=== PATIENT | male | born 1950 ===

== ENCOUNTER → 2018-07-10 | Outpatient (CLI) | payer MEDICARE | END | disposition home or self-care (01) | LOC: CVU 12:10 | PROVIDERS: ATTEND Internal Medicine Cardiovascular Disease | DX: I08.1 Rheumatic disorders of both mitral and tricuspid valves (principal) | CPT/HCPCS: 0399T; 93306; 93970 ==

== ENCOUNTER 2018-07-27 10:09 | Day surgery (SDC) | payer MEDICARE ==
[~2018-07-27] VITALS: Ht 180.3 cm; Wt 74.5 kg
[2018-07-27] MEDS ORDERED: No Medications (11:08)
[2018-07-27 11:09] VITALS: BP 154/85
[2018-07-27] MEDS ORDERED: SODIUM CHLORIDE 0.9% 1,000 ML IV SCH (11:30)
[2018-07-27] MEDS ORDERED: PLEASE ENTER HEIGHT AND WEIGHT MC SCH (11:30)
[2018-07-27] MEDS ORDERED: PROPOFOL 10 MG/ML, 20ML ONE (11:37)
== END 2018-07-27 13:04 | disposition home or self-care (01) ==
LOC: CACL 10:09
PROVIDERS: ATTEND Internal Medicine Cardiovascular Disease
DX: I34.0 Nonrheumatic mitral (valve) insufficiency (principal); E78.5 Hyperlipidemia, unspecified; Z98.890 Other specified postprocedural states
CPT/HCPCS: 93312; 93321; 93325; J2704

== ENCOUNTER → 2018-10-23 | Outpatient (CLI) | payer MEDICARE ==
[~2018-10-23] MED LIST: CLARITIN PO; MAGNESIUM PO; MULT-6 PO; No Medications; POTASSIUM PO
[2018-10-23 15:48] LABS: BASOPHILS # (AUTO) 0.03 x10^3/uL (0-0.1); BASOPHILS % (AUTO) 0 % (0-1); EOSINOPHILS # (AUTO) 0.19 x10^3/uL (0-0.4); EOSINOPHILS % (AUTO) 3 % (1-7); LYMPHOCYTES # (AUTO) 1.65 x10^3/uL (1-3.4); LYMPHOCYTES % (AUTO) 22 % (22-44); MD NO; MEAN CORPUSCULAR HEMOGLOBIN 31.4 pg (27.5-34.5); MEAN CORPUSCULAR HGB CONC 33.4 g/dL (33.2-36.2); MEAN CORPUSCULAR VOLUME 94.1 fL (81-97); MEAN PLATELET VOLUME 9.1 fL (7.4-10.4); MONOCYTES # (AUTO) 0.61 x10^3/uL (0.2-0.8); MONOCYTES % (AUTO) 8 % (2-9); NEUTROPHILS # (AUTO) 5.08 x10^3/uL (1.8-6.8); NEUTROPHILS % (AUTO) 67 % (42-75); PLATELET COUNT 210 x10^3/uL (130-400); RED BLOOD COUNT 4.85 x10^6/uL (4.38-5.82); RED CELL DISTRIBUTION WIDTH 14.1 % (9.4-14.8)
[2018-10-23 17:57] LABS: ANION GAP 6 mmol/L (5-15); CHLORIDE 105 mmol/L (98-107); CREATININE 1.03 mg/dL (0.7-1.3)
== END | disposition home or self-care (01) ==
LOC: CFH 14:01
PROVIDERS: ATTEND Internal Medicine Cardiovascular Disease
DX: Z12.11 Encounter for screening for malignant neoplasm of colon (principal); I34.0 Nonrheumatic mitral (valve) insufficiency; E78.5 Hyperlipidemia, unspecified; I83.023 Varicose veins of left lower extremity with ulcer of ankle; R01.1 Cardiac murmur, unspecified; R03.0 Elevated blood-pressure reading, without diagnosis of hypertension
CPT/HCPCS: 36415; 80048; 85025

== ENCOUNTER 2018-10-25 06:55 | Day surgery (SDC) | payer MEDICARE ==
[~2018-10-25] VITALS: Ht 177.8 cm; Wt 75.5 kg
[~2018-10-25 06:55] MED LIST changes: -CLARITIN PO; -MAGNESIUM PO; -MULT-6 PO; -POTASSIUM PO
[2018-10-25] MEDS ORDERED: POTASSIUM PO (07:16)
[2018-10-25] MEDS ORDERED: MAGNESIUM PO (07:16)
[2018-10-25] MEDS ORDERED: MULT-6 PO (07:16)
[2018-10-25] MEDS ORDERED: CLARITIN PO (07:16)
[2018-10-25 07:24] VITALS: BP 145/84
[2018-10-25] MEDS ORDERED: FENTANYL PF 100 MCG/2ML ONE (08:11)
[2018-10-25] MEDS ORDERED: MIDAZOLAM 1 MG/ML, 2ML ONE (08:11)
[2018-10-25] MEDS ORDERED: LIDOCAINE 1%, 20ML ONE (08:11)
== END 2018-10-25 11:34 | disposition home or self-care (01) ==
LOC: CACL 06:55
PROVIDERS: ATTEND Internal Medicine Cardiovascular Disease
DX: I25.10 Atherosclerotic heart disease of native coronary artery without angina pectoris (principal); I34.0 Nonrheumatic mitral (valve) insufficiency; E78.2 Mixed hyperlipidemia; G43.909 Migraine, unspecified, not intractable, without status migrainosus
CPT/HCPCS: 93458; 99156; C1760; C1769; C1894; J2250; J3010; J3490; Q9967

== ENCOUNTER 2018-11-07 04:17 | Inpatient (IN) | payer MEDICARE ==
[2018-11-06 14:22] LABS: MICROSCOPIC NOT IND
[2018-11-06 14:25] LABS: CULTURE INDICATED? NO
[2018-11-06 14:33] LABS: BASOPHILS # (AUTO) 0.03 x10^3/uL (0-0.1); BASOPHILS % (AUTO) 1 % (0-1); EOSINOPHILS # (AUTO) 0.14 x10^3/uL (0-0.4); EOSINOPHILS % (AUTO) 2 % (1-7); LYMPHOCYTES # (AUTO) 1.53 x10^3/uL (1-3.4); LYMPHOCYTES % (AUTO) 22 % (22-44); MD NO; MEAN CORPUSCULAR HEMOGLOBIN 32.1 pg (27.5-34.5); MEAN CORPUSCULAR HGB CONC 34.4 g/dL (33.2-36.2); MEAN CORPUSCULAR VOLUME 93.3 fL (81-97); MEAN PLATELET VOLUME 8.2 fL (7.4-10.4); MONOCYTES # (AUTO) 0.57 x10^3/uL (0.2-0.8); MONOCYTES % (AUTO) 8 % (2-9); NEUTROPHILS # (AUTO) 4.78 x10^3/uL (1.8-6.8); NEUTROPHILS % (AUTO) 68 % (42-75); PLATELET COUNT 224 x10^3/uL (130-400); RED BLOOD COUNT 4.85 x10^6/uL (4.38-5.82); RED CELL DISTRIBUTION WIDTH 14.1 % (9.4-14.8)
[2018-11-06 14:42] LABS: ALANINE AMINOTRANSFERASE 24 U/L (12-78); ANION GAP 7 mmol/L (5-15); CALCIUM 8.9 mg/dL (8.5-10.1); CHLORIDE 105 mmol/L (98-107); CREATININE 0.94 mg/dL (0.7-1.3)
[2018-11-06 14:44] LABS: INTERNATIONAL NORMALIZED RATIO 0.98 (0.93-1.1); PROTHROMBIN TIME 10.4 Seconds (9.6-11.5)
[2018-11-06 14:45] LABS: ALKALINE PHOSPHATASE 78 U/L (45-117); BILIRUBIN,TOTAL 0.6 mg/dL (0.2-1.0); TOTAL PROTEIN 7.4 g/dL (6.4-8.2)
[2018-11-06 15:45] LABS: HEMOGLOBIN A1C 5.2 % (4.2-6.3)
[~2018-11-07] VITALS: Ht 177.8 cm; Wt 79.9 kg
[~2018-11-07 04:17] MED LIST changes: +CLARITIN PO; +MAGN100T3 PO; +MAGNESIUM PO; +MULT-6 PO; +POTASSIUM PO
[2018-11-07 04:30] VITALS: BP_SYST 145; BP_DIAS 74; BP_DIAS 86
[2018-11-07] MEDS ORDERED: CHLORHEXIDINE 15 ML UDC MM SCH (05:00)
[2018-11-07] MEDS ORDERED: DO NOT GIVE MC SCH (05:00)
[2018-11-07] MEDS ORDERED: INSULIN LISPRO 100 UNITS/ML, PEN SQ-INSULIN SCH (05:00)
[2018-11-07] MEDS: MUPIROCIN OINT 2%, 22GM TP SCH ×2 (05:38→19:29)
[2018-11-07] MEDS: SODIUM CHLORIDE FLUSH 10ML SYR IVF SCH ×3 (05:38→19:58)
[2018-11-07 06:51] VITALS: BP 124/77
[2018-11-07] MEDS ORDERED: VANCOMYCIN 1,100 MG in SODIUM CHLORIDE 0.9% 250 ML IV PRN (07:30)
[2018-11-07] MEDS ORDERED: PHENYLEPHRINE 10 MG in SODIUM CHLORIDE 0.9% 249 ML IV PRN ×2 (07:30→11:46)
[2018-11-07] MEDS ORDERED: REGULAR INSULIN 62.5 UNITS in SODIUM CHLORIDE 0.9% 249.375 ML IV PRN ×2 (07:30→11:46)
[2018-11-07] MEDS ORDERED: POTASSIUM CHLORIDE 80 MEQ, SODIUM BICARBONATE 8.4% 10 MEQ, MAGNESIUM SULFATE 0.5 GM, LI... IV PRN (07:30)
[2018-11-07] MEDS ORDERED: EPINEPHRINE 2 MG in SODIUM CHLORIDE 0.9% 248 ML IV SCH (07:30)
[2018-11-07] MEDS ORDERED: MANNITOL PMX 20% 500 ML IVPB PRN (07:30)
[2018-11-07] MEDS ORDERED: DEXMEDETOMIDINE 200 MCG in SODIUM CHLORIDE 0.9% 48 ML IV SCH (07:30)
[2018-11-07] MEDS ORDERED: CEFUROXIME 1.5 GM in SODIUM CHLORIDE 0.9% 50 ML IVPB PRN (07:30)
[2018-11-07] MEDS ORDERED: ALBUMIN HUMAN 5% 500 ML IV PRN (07:30)
[2018-11-07] MEDS ORDERED: FENTANYL PF 250 MCG/5ML ONE ×4 (07:48)
[2018-11-07] MEDS ORDERED: MIDAZOLAM 10MG/2 ML ONE (07:48)
[2018-11-07] MEDS: DOCUSATE 100 MG CAPSULE PO SCH ×2 (09:00→19:58)
[2018-11-07] MEDS ORDERED: ROCURONIUM 10MG/ML,5ML ONE ×2 (10:00)
[2018-11-07] MEDS ORDERED: PROTAMINE SULFATE 10 MG/ML, 25ML ONE (10:00)
[2018-11-07] MEDS ORDERED: PROPOFOL 10 MG/ML, 20ML ONE (10:00)
[2018-11-07] MEDS ORDERED: AMINOCAPROIC ACID 250 MG/ML, 20ML ONE ×2 (10:00)
[2018-11-07] MEDS ORDERED: SODIUM CHLORIDE 0.9% 1,000 ML IV PRN (11:46)
[2018-11-07] MEDS ORDERED: VASOPRESSIN 50 UNIT in SODIUM CHLORIDE 0.9% 247.5 ML IV PRN (11:46)
[2018-11-07] MEDS ORDERED: NITROGLYCERIN/D5W PMX 250 ML IV PRN (11:46)
[2018-11-07] MEDS ORDERED: DEXMEDETOMIDINE 200 MCG in SODIUM CHLORIDE 0.9% 48 ML IV PRN (11:46)
[2018-11-07] MEDS ORDERED: DOBUTAMINE 250 MG in SODIUM CHLORIDE 0.9% 230 ML IV PRN (11:46)
[2018-11-07] MEDS ORDERED: LIDOCAINE 2% 100MG/5ML SYRINGE ONE (11:52)
[2018-11-07] MEDS ORDERED: SODIUM BICARB 8.4%, 50ML SYRINGE ONE (11:52)
[2018-11-07] MEDS ORDERED: methylPREDNISolone SOD SUCC 125 MG/2 ML ONE (11:52)
[2018-11-07] MEDS ORDERED: MANNITOL 0.25 GM/ML, 50ML ONE (11:53)
[2018-11-07] MEDS ORDERED: ALBUMIN HUMAN 25% 50 ML ONE (11:53)
[2018-11-07] MEDS ORDERED: HEPARIN 1,000 UNITS/ML, 30ML ONE (11:53)
[2018-11-07] MEDS: KSCALE TO 4.5 IV SCH ×3 (12:00→23:53)
[2018-11-07] MEDS ORDERED: PROCHLORPERAZINE 5 MG/ML, 2ML IVPush PRN (12:00)
[2018-11-07] MEDS ORDERED: SODIUM BICARB 8.4%, 50ML SYRINGE IV PRN (12:00)
[2018-11-07] MEDS ORDERED: BISACODYL 5 MG EC TABLET PO PRN (12:00)
[2018-11-07] MEDS ORDERED: FENTANYL PF 100 MCG/2ML IVPush PRN (12:00)
[2018-11-07] MEDS ORDERED: GLUCAGON 1 MG IM PRN (12:00)
[2018-11-07] MEDS ORDERED: morphine SULFATE 10 MG/ML, 1ML IVPush PRN (12:00)
[2018-11-07] MEDS ORDERED: DEXTROSE 4 GM TAB.CHEW PO PRN (12:00)
[2018-11-07] MEDS ORDERED: ACETAMINOPHEN 325 MG TABLET PO PRN (12:00)
[2018-11-07] MEDS ORDERED: INSULIN REGULAR 100 UNITS/ML, 3ML VIAL IVPush PRN (12:00)
[2018-11-07] MEDS ORDERED: EPINEPHRINE 2 MG in SODIUM CHLORIDE 0.9% 248 ML IV PRN (12:00)
[2018-11-07] MEDS ORDERED: BISACODYL 10 MG SUPP PR PRN (12:00)
[2018-11-07] MEDS ORDERED: ONDANSETRON 2MG/ML, 2ML IVPush PRN (12:00)
[2018-11-07] MEDS ORDERED: DEXTROSE 50%, 50ML SYRINGE IVPush PRN (12:00)
[2018-11-07] MEDS ORDERED: MIDAZOLAM 1 MG/ML, 5ML IVPush PRN (12:00)
[2018-11-07] MEDS ORDERED: CEFUROXIME 1.5 GM in SODIUM CHLORIDE 0.9% 50 ML IVPB SCH (12:00)
[2018-11-07] MEDS ORDERED: HYDROcodone/APAP 10/325 MG TABLET PO PRN (12:00)
[2018-11-07] MEDS ORDERED: ACETAMINOPHEN 650 MG SUPP PR PRN (12:00)
[2018-11-07 12:28] LABS: GLUCOSE BY BLOOD GAS ANALYZER 129 mg/dL (70-110); HEMOGLOBIN BY BLOOD GAS ANALYZ 12.6 g/dL (14.0-18.0)
[2018-11-07] MEDS ORDERED: MAGNESIUM SULFATE 1 GM in SODIUM CHLORIDE 0.9% 50 ML IVPB SCH (12:30)
[2018-11-07 12:40] LABS: INTERNATIONAL NORMALIZED RATIO 1.17 (0.93-1.1); PROTHROMBIN TIME 12.3 Seconds (9.6-11.5)
[2018-11-07] MEDS: LACTATED RINGERS 1,000 ML IV PRN ×4 (14:24→16:16)
[2018-11-07] MEDS: INSULIN LISPRO 100 UNITS/ML, PEN SQ-INSULIN SCH ×2 (16:00→19:58)
[2018-11-07] MEDS: OXYcodone IR 5MG TABLET PO PRN ×2 (16:24→19:58)
[2018-11-07] MEDS ORDERED: ALBUMIN HUMAN 25% 100 ML IV ONE (16:30)
[2018-11-07] MEDS ORDERED: ALBUMIN HUMAN 5% 500 ML IV ONE ×3 (16:30→17:00)
[2018-11-07] MEDS: MUPIROCIN OINT 2%, 22GM NAS SCH (19:58)
[2018-11-07] MEDS: HYDROcodone/APAP 5/325 TABLET PO PRN (22:26)
[2018-11-07] MEDS: VANCOMYCIN 1,100 MG in SODIUM CHLORIDE 0.9% 250 ML IVPB SCH (22:26)
[2018-11-07] MEDS: CEFUROXIME 1.5 GM in SODIUM CHLORIDE 0.9% 50 ML IVPB SCH (23:48)
[2018-11-08] MEDS ORDERED: FUROSEMIDE 20 MG/2 ML IV ONE (02:00)
[2018-11-08] MEDS: HYDROcodone/APAP 5/325 TABLET PO PRN ×2 (05:06→11:37)
[2018-11-08 06:05] LABS: INTERNATIONAL NORMALIZED RATIO 1.08 (0.93-1.1); PROTHROMBIN TIME 11.4 Seconds (9.6-11.5)
[2018-11-08 06:07] LABS: MEAN CORPUSCULAR HEMOGLOBIN 32.3 pg (27.5-34.5); MEAN CORPUSCULAR HGB CONC 34.7 g/dL (33.2-36.2); MEAN CORPUSCULAR VOLUME 93.2 fL (81-97); MEAN PLATELET VOLUME 8.8 fL (7.4-10.4); PLATELET COUNT 135 x10^3/uL (130-400); RED BLOOD COUNT 3.98 x10^6/uL (4.38-5.82); RED CELL DISTRIBUTION WIDTH 13.4 % (9.4-14.8)
[2018-11-08 06:09] LABS: CALCIUM 8.3 mg/dL (8.5-10.1); CHLORIDE 109 mmol/L (98-107)
[2018-11-08 06:13] LABS: ALBUMIN 3.1 g/dL (3.4-5.0); ANION GAP 6 mmol/L (5-15); CREATININE 0.83 mg/dL (0.7-1.3)
[2018-11-08 06:30] LABS: BASOPHILS # (AUTO) 0.04 x10^3/uL (0-0.1); BASOPHILS % (AUTO) 0 % (0-1); EOSINOPHILS % (AUTO) 0 % (1-7); LYMPHOCYTES % (AUTO) 6 % (22-44); MD SCAN; MONOCYTES # (AUTO) 1.19 x10^3/uL (0.2-0.8); MONOCYTES % (AUTO) 7 % (2-9); NEUTROPHILS # (AUTO) 14.71 x10^3/uL (1.8-6.8); NEUTROPHILS % (AUTO) 87 % (42-75)
[2018-11-08] MEDS: KSCALE TO 4.5 IV SCH (06:42)
[2018-11-08] MEDS: INSULIN LISPRO 100 UNITS/ML, PEN SQ-INSULIN SCH ×4 (07:00→20:56)
[2018-11-08] MEDS: DOCUSATE 100 MG CAPSULE PO SCH ×2 (08:21→20:57)
[2018-11-08] MEDS: ASPIRIN 81 MG TABLET EC PO SCH (08:21)
[2018-11-08] MEDS: SODIUM CHLORIDE FLUSH 10ML SYR IVF SCH ×4 (08:22→20:57)
[2018-11-08] MEDS: WARFARIN BIOPROSTHETIC VALVE PROTOCOL 2-3 XX SCH (09:00)
[2018-11-08] MEDS: VANCOMYCIN 1,100 MG in SODIUM CHLORIDE 0.9% 250 ML IVPB SCH (10:00)
[2018-11-08] MEDS: KETOROLAC 30 MG/1 ML IM SCH ×3 (10:00→21:10)
[2018-11-08] MEDS: CEFUROXIME 1.5 GM in SODIUM CHLORIDE 0.9% 50 ML IVPB SCH (11:39)
[2018-11-08] MEDS: MUPIROCIN OINT 2%, 22GM NAS SCH ×2 (11:40→20:57)
[2018-11-08] MEDS ORDERED: VANCOMYCIN 1,100 MG in SODIUM CHLORIDE 0.9% 250 ML IVPB ONE (12:00)
[2018-11-08] MEDS: POTASSIUM CHLORIDE 10 MEQ TABLET.ER PO SCH (17:00)
[2018-11-08] MEDS: FUROSEMIDE 20 MG/2 ML IV SCH (17:34)
[2018-11-08] MEDS ORDERED: WARFARIN 5 MG TABLET PO-COUM ONE (18:00)
[2018-11-08] MEDS: CHLORHEXIDINE 15 ML UDC MM SCH (20:56)
[2018-11-09] MEDS: KETOROLAC 30 MG/1 ML IM SCH ×4 (04:44→21:28)
[2018-11-09 05:41] LABS: ANION GAP 5 mmol/L (5-15); CALCIUM 7.8 mg/dL (8.5-10.1); CHLORIDE 106 mmol/L (98-107); INTERNATIONAL NORMALIZED RATIO 1.03 (0.93-1.1); PROTHROMBIN TIME 10.9 Seconds (9.6-11.5)
[2018-11-09 05:42] LABS: CREATININE 0.84 mg/dL (0.7-1.3)
[2018-11-09 05:49] LABS: BASOPHILS # (AUTO) 0.04 x10^3/uL (0-0.1); BASOPHILS % (AUTO) 0 % (0-1); EOSINOPHILS # (AUTO) 0.04 x10^3/uL (0-0.4); EOSINOPHILS % (AUTO) 0 % (1-7); LYMPHOCYTES # (AUTO) 1.36 x10^3/uL (1-3.4); LYMPHOCYTES % (AUTO) 10 % (22-44); MD NO; MEAN CORPUSCULAR HEMOGLOBIN 32.4 pg (27.5-34.5); MEAN CORPUSCULAR HGB CONC 34.1 g/dL (33.2-36.2); MEAN CORPUSCULAR VOLUME 94.9 fL (81-97); MEAN PLATELET VOLUME 9.4 fL (7.4-10.4); MONOCYTES # (AUTO) 1.16 x10^3/uL (0.2-0.8); MONOCYTES % (AUTO) 9 % (2-9); NEUTROPHILS # (AUTO) 10.73 x10^3/uL (1.8-6.8); NEUTROPHILS % (AUTO) 81 % (42-75); PLATELET COUNT 106 x10^3/uL (130-400); RED CELL DISTRIBUTION WIDTH 13.8 % (9.4-14.8)
[2018-11-09] MEDS: INSULIN LISPRO 100 UNITS/ML, PEN SQ-INSULIN SCH ×4 (07:00→20:31)
[2018-11-09] MEDS: POTASSIUM CHLORIDE 10 MEQ TABLET.ER PO SCH ×2 (08:00→17:00)
[2018-11-09] MEDS: SODIUM CHLORIDE FLUSH 10ML SYR IVF SCH ×4 (09:00→20:24)
[2018-11-09] MEDS: WARFARIN BIOPROSTHETIC VALVE PROTOCOL 2-3 XX SCH (09:00)
[2018-11-09] MEDS: FUROSEMIDE 20 MG/2 ML IV SCH ×2 (09:49→18:43)
[2018-11-09] MEDS: ASPIRIN 81 MG TABLET EC PO SCH (09:49)
[2018-11-09] MEDS: DOCUSATE 100 MG CAPSULE PO SCH ×2 (09:49→21:27)
[2018-11-09] MEDS: CHLORHEXIDINE 15 ML UDC MM SCH ×2 (09:50→21:27)
[2018-11-09] MEDS: MUPIROCIN OINT 2%, 22GM NAS SCH ×2 (11:36→21:28)
[2018-11-09] MEDS ORDERED: WARFARIN 5 MG TABLET PO-COUM ONE (18:00)
[2018-11-10] MEDS: KETOROLAC 30 MG/1 ML IM SCH ×4 (04:20→22:05)
[2018-11-10 06:21] LABS: ANION GAP 6 mmol/L (5-15); CALCIUM 7.8 mg/dL (8.5-10.1); CHLORIDE 104 mmol/L (98-107); CREATININE 0.76 mg/dL (0.7-1.3)
[2018-11-10 06:31] LABS: BASOPHILS # (AUTO) 0.11 x10^3/uL (0-0.1); BASOPHILS % (AUTO) 1 % (0-1); EOSINOPHILS # (AUTO) 0.17 x10^3/uL (0-0.4); EOSINOPHILS % (AUTO) 2 % (1-7); LYMPHOCYTES # (AUTO) 1.31 x10^3/uL (1-3.4); LYMPHOCYTES % (AUTO) 15 % (22-44); MD NO; MEAN CORPUSCULAR HEMOGLOBIN 33.1 pg (27.5-34.5); MEAN CORPUSCULAR HGB CONC 35.3 g/dL (33.2-36.2); MEAN CORPUSCULAR VOLUME 93.6 fL (81-97); MEAN PLATELET VOLUME 9.9 fL (7.4-10.4); MONOCYTES # (AUTO) 0.89 x10^3/uL (0.2-0.8); MONOCYTES % (AUTO) 10 % (2-9); NEUTROPHILS # (AUTO) 6.42 x10^3/uL (1.8-6.8); NEUTROPHILS % (AUTO) 72 % (42-75); PLATELET COUNT 100 x10^3/uL (130-400); RED BLOOD COUNT 3.59 x10^6/uL (4.38-5.82); RED CELL DISTRIBUTION WIDTH 13.5 % (9.4-14.8)
[2018-11-10 06:32] LABS: INTERNATIONAL NORMALIZED RATIO 1.03 (0.93-1.1); PROTHROMBIN TIME 10.9 Seconds (9.6-11.5)
[2018-11-10] MEDS: INSULIN LISPRO 100 UNITS/ML, PEN SQ-INSULIN SCH ×2 (07:00→11:00)
[2018-11-10] MEDS: WARFARIN BIOPROSTHETIC VALVE PROTOCOL 2-3 XX SCH (07:37)
[2018-11-10] MEDS: DOCUSATE 100 MG CAPSULE PO SCH ×2 (07:56→21:54)
[2018-11-10] MEDS: SODIUM CHLORIDE FLUSH 10ML SYR IVF SCH ×4 (07:56→21:54)
[2018-11-10] MEDS: MUPIROCIN OINT 2%, 22GM NAS SCH ×2 (07:56→21:54)
[2018-11-10] MEDS: FUROSEMIDE 20 MG/2 ML IV SCH ×2 (07:56→17:24)
[2018-11-10] MEDS: CHLORHEXIDINE 15 ML UDC MM SCH (07:56)
[2018-11-10] MEDS: ASPIRIN 81 MG TABLET EC PO SCH (07:56)
[2018-11-10] MEDS: POTASSIUM CHLORIDE 10 MEQ TABLET.ER PO SCH ×2 (07:56→17:24)
[2018-11-10 15:04] VITALS: BP 105/64
[2018-11-10] MEDS ORDERED: WARFARIN 5 MG TABLET PO-COUM ONE (18:00)
[2018-11-10 20:36] VITALS: BP 95/68
[2018-11-11 02:47] VITALS: BP 112/64
[2018-11-11] MEDS: KETOROLAC 30 MG/1 ML IM SCH ×3 (04:30→16:09)
[2018-11-11 05:00] LABS: BASOPHILS # (AUTO) 0.03 x10^3/uL (0-0.1); BASOPHILS % (AUTO) 0 % (0-1); EOSINOPHILS # (AUTO) 0.15 x10^3/uL (0-0.4); EOSINOPHILS % (AUTO) 2 % (1-7); LYMPHOCYTES # (AUTO) 0.97 x10^3/uL (1-3.4); LYMPHOCYTES % (AUTO) 12 % (22-44); MD NO; MEAN CORPUSCULAR HEMOGLOBIN 31.5 pg (27.5-34.5); MEAN CORPUSCULAR VOLUME 92.5 fL (81-97); MEAN PLATELET VOLUME 9.5 fL (7.4-10.4); MONOCYTES # (AUTO) 0.75 x10^3/uL (0.2-0.8); MONOCYTES % (AUTO) 9 % (2-9); NEUTROPHILS # (AUTO) 6.11 x10^3/uL (1.8-6.8); NEUTROPHILS % (AUTO) 76 % (42-75); PLATELET COUNT 117 x10^3/uL (130-400); RED BLOOD COUNT 3.59 x10^6/uL (4.38-5.82); RED CELL DISTRIBUTION WIDTH 13.2 % (9.4-14.8)
[2018-11-11 05:08] LABS: INTERNATIONAL NORMALIZED RATIO 1.05 (0.93-1.1); PROTHROMBIN TIME 11.1 Seconds (9.6-11.5)
[2018-11-11 05:09] LABS: ANION GAP 7 mmol/L (5-15); CALCIUM 7.9 mg/dL (8.5-10.1); CHLORIDE 103 mmol/L (98-107); CREATININE 0.85 mg/dL (0.7-1.3)
[2018-11-11] MEDS: FUROSEMIDE 20 MG/2 ML IV SCH ×2 (07:30→16:09)
[2018-11-11 08:04] VITALS: BP 109/67
[2018-11-11] MEDS: WARFARIN BIOPROSTHETIC VALVE PROTOCOL 2-3 XX SCH (09:00)
[2018-11-11] MEDS: SODIUM CHLORIDE FLUSH 10ML SYR IVF SCH ×4 (09:00→22:05)
[2018-11-11] MEDS: POTASSIUM CHLORIDE 10 MEQ TABLET.ER PO SCH ×2 (09:21→16:09)
[2018-11-11] MEDS: DOCUSATE 100 MG CAPSULE PO SCH ×2 (09:22→22:05)
[2018-11-11] MEDS: MUPIROCIN OINT 2%, 22GM NAS SCH ×2 (09:22→22:05)
[2018-11-11] MEDS: ASPIRIN 81 MG TABLET EC PO SCH (09:22)
[2018-11-11 15:35] VITALS: BP 110/64
[2018-11-11] MEDS ORDERED: WARFARIN 10 MG TABLET PO-COUM ONE (18:00)
[2018-11-11 19:49] VITALS: BP 119/77
[2018-11-11] MEDS: KETOROLAC 30 MG/1 ML IV SCH (22:05)
[2018-11-12 01:37] VITALS: BP 122/71
[2018-11-12] MEDS: KETOROLAC 30 MG/1 ML IV SCH ×4 (03:54→22:24)
[2018-11-12 05:32] LABS: BASOPHILS # (AUTO) 0.03 x10^3/uL (0-0.1); BASOPHILS % (AUTO) 0 % (0-1); EOSINOPHILS # (AUTO) 0.29 x10^3/uL (0-0.4); EOSINOPHILS % (AUTO) 4 % (1-7); LYMPHOCYTES # (AUTO) 1.13 x10^3/uL (1-3.4); LYMPHOCYTES % (AUTO) 17 % (22-44); MD NO; MEAN CORPUSCULAR HGB CONC 35.2 g/dL (33.2-36.2); MEAN CORPUSCULAR VOLUME 93.6 fL (81-97); MEAN PLATELET VOLUME 9.3 fL (7.4-10.4); MONOCYTES # (AUTO) 0.89 x10^3/uL (0.2-0.8); MONOCYTES % (AUTO) 14 % (2-9); NEUTROPHILS # (AUTO) 4.21 x10^3/uL (1.8-6.8); NEUTROPHILS % (AUTO) 64 % (42-75); PLATELET COUNT 137 x10^3/uL (130-400); RED CELL DISTRIBUTION WIDTH 13.2 % (9.4-14.8)
[2018-11-12 05:34] LABS: INTERNATIONAL NORMALIZED RATIO 1.04 (0.93-1.1)
[2018-11-12 05:39] LABS: ANION GAP 8 mmol/L (5-15); CALCIUM 7.9 mg/dL (8.5-10.1); CHLORIDE 107 mmol/L (98-107); CREATININE 0.83 mg/dL (0.7-1.3)
[2018-11-12] MEDS: WARFARIN BIOPROSTHETIC VALVE PROTOCOL 2-3 XX SCH (08:26)
[2018-11-12] MEDS: DOCUSATE 100 MG CAPSULE PO SCH ×2 (09:00→22:24)
[2018-11-12] MEDS: FUROSEMIDE 20 MG/2 ML IV SCH ×2 (09:39→17:43)
[2018-11-12] MEDS: POTASSIUM CHLORIDE 10 MEQ TABLET.ER PO SCH ×2 (09:39→17:43)
[2018-11-12] MEDS: ASPIRIN 81 MG TABLET EC PO SCH (09:40)
[2018-11-12] MEDS: SODIUM CHLORIDE FLUSH 10ML SYR IVF SCH ×4 (09:40→22:24)
[2018-11-12] MEDS: MUPIROCIN OINT 2%, 22GM NAS SCH (09:40)
[2018-11-12] MEDS ORDERED: ASPI81TA45 PO (09:57)
[2018-11-12] MEDS ORDERED: POTA10TA5 PO (09:57)
[2018-11-12] MEDS ORDERED: FURO-93 PO (09:57)
[2018-11-12] MEDS ORDERED: TRAM-47 PO (09:57)
[2018-11-12] MEDS ORDERED: WARF5TAB PO (09:57)
[2018-11-12 14:36] VITALS: BP 112/70
[2018-11-12] MEDS ORDERED: WARFARIN 10 MG TABLET PO-COUM ONE (18:00)
[2018-11-12 20:36] VITALS: BP 119/74
[2018-11-13 02:35] VITALS: BP 109/71
[2018-11-13 05:40] LABS: INTERNATIONAL NORMALIZED RATIO 1.1 (0.93-1.1); PROTHROMBIN TIME 11.6 Seconds (9.6-11.5)
[2018-11-13 05:44] LABS: ANION GAP 5 mmol/L (5-15); CALCIUM 8.1 mg/dL (8.5-10.1); CHLORIDE 108 mmol/L (98-107); CREATININE 0.87 mg/dL (0.7-1.3)
[2018-11-13 07:14] VITALS: BP 121/80
[2018-11-13] MEDS: FUROSEMIDE 20 MG/2 ML IV SCH (07:30)
[2018-11-13] MEDS: DOCUSATE 100 MG CAPSULE PO SCH (07:58)
[2018-11-13] MEDS: KETOROLAC 30 MG/1 ML IV SCH (07:58)
[2018-11-13] MEDS: WARFARIN BIOPROSTHETIC VALVE PROTOCOL 2-3 XX SCH (07:58)
[2018-11-13] MEDS: POTASSIUM CHLORIDE 10 MEQ TABLET.ER PO SCH (08:00)
[2018-11-13] MEDS: SODIUM CHLORIDE FLUSH 10ML SYR IVF SCH ×2 (08:45)
[2018-11-13] MEDS: ASPIRIN 81 MG TABLET EC PO SCH (10:04)
[2018-11-13] MEDS ORDERED: WARFARIN 5 MG TABLET PO-COUM ONE (18:00)
== END 2018-11-13 11:44 | disposition home health service (06) | DRG 219 ==
LOC: 5SO 04:17 → CCU 08:28 → 5SO 11-10 14:17 → DCLOUNGE 11-13 10:54
PROVIDERS: ADMIT Thoracic Surgery (Cardiothoracic Vascular Surgery); ATTEND Thoracic Surgery (Cardiothoracic Vascular Surgery)
PROC: B246ZZ4 Ultrasonography of Right and Left Heart, Transesophageal (ICD-10-PCS; 2018-11-07)
PROC: 02BG0ZZ Excision of Mitral Valve, Open Approach (ICD-10-PCS; 2018-11-07)
PROC: 03HY32Z Insertion of Monitoring Device into Upper Artery, Percutaneous Approach (ICD-10-PCS; 2018-11-07)
PROC: 02HV33Z Insertion of Infusion Device into Superior Vena Cava, Percutaneous Approach (ICD-10-PCS; 2018-11-07)
PROC: 5A1221Z Performance of Cardiac Output, Continuous (ICD-10-PCS; 2018-11-07)
PROC: 02UG0JZ Supplement Mitral Valve with Synthetic Substitute, Open Approach (ICD-10-PCS; principal; 2018-11-07 08:30)
DX: I34.1 Nonrheumatic mitral (valve) prolapse (principal); R65.11 Systemic inflammatory response syndrome (SIRS) of non-infectious origin with acute organ dysfunction; I49.8 Other specified cardiac arrhythmias; I34.0 Nonrheumatic mitral (valve) insufficiency; R25.1 Tremor, unspecified; E78.5 Hyperlipidemia, unspecified; I25.10 Atherosclerotic heart disease of native coronary artery without angina pectoris; I83.90 Asymptomatic varicose veins of unspecified lower extremity; K40.90 Unilateral inguinal hernia, without obstruction or gangrene, not specified as recurrent; Z82.49 Family history of ischemic heart disease and other diseases of the circulatory system; Z87.891 Personal history of nicotine dependence
CPT/HCPCS: 36415; 36600; 71045; 71046; 80048; 80053; 81003; 82040; 82330; 82800; 82803; 82810; 82947; 82962; 83036; 83735; 84132; 84295; 85014; 85018; 85025; 85049; 85347; 85610; 85730; 86850; 86900; 86923; 87081; 88305; 93005; 93312; 93321; 93325; 93880; 94002; G0378; J0697; J1644; J1815; J1885; J2250; J2405; J2704; J2720; J3010; J3370; J3475; J3480; J3490; P9045; P9047; C1751; C1760; J0171; J1940; J2150; J2370; J2930; J7050; J7120

== ENCOUNTER → 2019-01-31 | Outpatient (CLI) | payer MEDICARE ==
[~2019-01-31] MED LIST changes: +ASPI81TA45 PO; +FURO-93 PO; +POTA10TA5 PO; +TRAM-47 PO; +WARF5TAB PO
== END | disposition home or self-care (01) ==
LOC: CFH 12:25
PROVIDERS: ATTEND Internal Medicine Cardiovascular Disease
DX: I08.8 Other rheumatic multiple valve diseases (principal)
CPT/HCPCS: 93306

== ENCOUNTER → 2021-05-24 | Outpatient (CLI) | payer MEDICARE ==
[~2021-05-24] MED LIST changes: -WARF5TAB PO; +WARF5TAB2 PO
== END | disposition home or self-care (01) ==
LOC: CFH 10:38
PROVIDERS: ATTEND Internal Medicine Cardiovascular Disease
DX: I08.8 Other rheumatic multiple valve diseases (principal); I11.9 Hypertensive heart disease without heart failure
CPT/HCPCS: 93306; 93356